=== PATIENT | female | born 1990 | race Caucasian/White ===

== ENCOUNTER 2016-10-21 11:38 | Day surgery (SDC) | payer OTHER ==
[~2016-10-21 11:38] MED LIST: ACETAMINOPHEN 1,000 MG/100 ML 100 ML IV ONE; CELECOXIB 100 MG CAPSULE PO ONE; ceFAZolin 2 GM/50 ML 50 ML IV ONE
[2016-10-21] MEDS ORDERED: LACTATED RINGERS 1,000 ML IV ONE (11:45)
[2016-10-21] MEDS ORDERED: SCOPOLAMINE PATCH TOP ONE (14:16)
[2016-10-21] MEDS ORDERED: ROPIVACAINE 0.2% PF 20 ML AMPULE SUBQ ONE ×2 (14:54→15:05)
[2016-10-21] MEDS ORDERED: MORPHINE PF 5 MG/10 ML AMP SUBQ ONE (14:55)
[2016-10-21] MEDS ORDERED: HYDROmorphone 1 MG/ML SYRINGE IVP ONE (15:05)
[2016-10-21] MEDS ORDERED: LIDOCAINE-MPF 2% 5 ML VIAL IM ONE (15:05)
[2016-10-21] MEDS ORDERED: MIDAZOLAM 2 MG/2 ML VIAL IVP ONE (15:05)
[2016-10-21] MEDS ORDERED: PROPOFOL 200 MG/20 ML VIAL IVP ONE (15:05)
[2016-10-21] MEDS ORDERED: DEXAMETHASONE 4 MG/ML VIAL IVP ONE (15:05)
[2016-10-21] MEDS ORDERED: ONDANSETRON 4 MG/2 ML VIAL IVP ONE (15:05)
[2016-10-21] MEDS ORDERED: EPINEPHrine 1 MG/ML AMP IVP ONE (15:05)
[2016-10-21] MEDS ORDERED: DEXAMETHASONE 10 MG/ML VIAL IVP ONE (15:05)
[2016-10-21] MEDS ORDERED: EPINEPHrine 1 MG/ML AMP IR ONE (15:16)
[2016-10-21] MEDS ORDERED: BUPIVACAINE 0.5% PF 30 ML VIAL SUBQ ONE (15:50)
[2016-10-21] MEDS: fentaNYL 100 MCG/2 ML VIAL ONE ×2 (16:07→16:12)
[2016-10-21] MEDS: HYDROmorphone 1 MG/ML SYRINGE ONE ×5 (16:19→16:59)
[2016-10-21] MEDS ORDERED: HYDROmorphone 1 MG/ML SYRINGE ONE ×2 (16:55→16:56)
[2016-10-21] MEDS ORDERED: oxyCOD/ACETAMIN 5 MG/325 MG TABLET PO ONE ×2 (17:19→17:54)
== END 2016-10-21 11:39 | disposition home or self-care (01) ==
PROC: 0SQD4ZZ Repair Left Knee Joint, Percutaneous Endoscopic Approach (ICD-10-PCS; 2016-10-21)
PROC: 0SBD4ZZ Excision of Left Knee Joint, Percutaneous Endoscopic Approach (ICD-10-PCS; 2016-10-21)
PROC: 0SBD4ZX Excision of Left Knee Joint, Percutaneous Endoscopic Approach, Diagnostic (ICD-10-PCS; principal; 2016-10-21 13:00)
DX: M22.42 Chondromalacia patellae, left knee (principal)
CPT/HCPCS: 29879; 29999; 81025; A9270; J0131; J0690; J1170; J3490; J7120

== ENCOUNTER 2017-01-31 15:32 | Emergency (ER) | payer OTHER ==
[2017-01-31 15:40] VITALS: BP 139/95
[2017-01-31] MEDS ORDERED: IBUPROFEN 800 MG TABLET PO ONE (16:25)
[2017-01-31] MEDS ORDERED: AMOX/CLAV 875 MG/125 MG TABLET PO STA (16:25)
[2017-01-31] MEDS ORDERED: IBUPROFEN 800 MG TABLET PO STA (16:25)
[2017-01-31] MEDS ORDERED: AMOX/CLAV 875 MG/125 MG TABLET PO ONE (16:41)
--- NOTE | 2017-01-31 16:56 | ED Physician Documentation ---
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 No: Weakness, Numbness, Tingling Contributing factors: Work related. No: Immunocompromised, Asplenic, Anticoagulated, Un/under immunized Similar symptoms before: Has not had sx before Recently seen: Not recently seen - Additional information Additional information: Patient washed the wound thoroughly prior to arrival with soapy water and alcohol. Review of Systems Constitutional: denies: Fever, Chills : denies: Now EGA Skin: denies: Rash Musculoskeletal: denies: Neck pain, Back pain Neurologic: denies: Focal weakness, Numbness, Headache PD PAST MEDICAL HISTORY - Past Medical History Past Medical History: Yes Cardiovascular: None Respiratory: None Endocrine/Autoimmune: None GI: None : Other HEENT: Other Psych: Depression, Anxiety Musculoskeletal: Other Derm: None - Past Surgical History Past Surgical History: Yes Ortho: Arthroscopic surgery - Present Medications Home Medications: Ambulatory Orders Medication Instructions Recorded Confirmed Etonogestrel [Nexplanon] 68 mg IP TITR 04/05/15 01/31/17 Venlafaxine HCl [Effexor Xr] 150 mg PO DAILY 04/05/15 01/31/17 Amox/Clav 875/125 [Augmentin] 1 each PO Q12H #14 tablet 01/31/17 Celecoxib [CeleBREX] 100 mg PO DAILY 01/31/17 01/31/17 Ibuprofen [Motrin] 800 mg PO Q8H PRN #30 tablet 01/31/17 - Allergies Allergies/Adverse Reactions: Allergies Allergy/AdvReac Type Severity Reaction Status Date / Time hydrocodone bitartrate * Allergy Hives Verified 01/31/17 15:41 [From Vicodin] venom-honey bee Allergy Anaphylaxis Verified 01/31/17 15:41 [bee venom (honey bee)] - Social History Does the pt smoke?: No Smoking Status: Never smoker Does the pt drink ETOH?: Yes Does the pt have substance abuse?: No - Immunizations Immunizations are current?: Yes Immunizations: TDAP current <10years - POLST Patient has POLST: No PD ED PE NORMAL - Vitals Vital signs reviewed: Yes - General General: Alert and oriented X 3, No acute distress - Derm Derm: Warm and dry - Extremities Extremities: Other (Left thenar eminence with 2 small abrasion/puncture wounds. There is mild swelling. There is tenderness along the first metacarpal. 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 This appears to be a superficial wound to the thenar eminence of the left hand. This was washed and cleansed thoroughly prior to arrival and she does not want us to wash it again at this time. There is no bleeding, so dressing was not applied. Will allow it to be open to the air. No repair needed. No acute findings on x-ray, no fractures or retained foreign objects. Will place on Augmentin for home and follow-up with her doctor. L and I paperwork filled out. Patient counseled regarding signs and symptoms for which I believe and urgent re-evaluation would be necessary. Patient with good understanding of and agreement to plan and is comfortable going home at this time This document was made in part using voice recognition software. While efforts are made to proofread this document, sound alike and grammatical errors may occur. Departure - Departure Disposition: 01 Home, Self Care Clinical Impression: Dog bite Qualifiers: Encounter type: initial encounter Qualified Code(s): W54.0XXA - Bitten by dog, initial encounter Condition: Good Instructions: ED Bite Animal General Follow-Up: Lj Ruiz MD [Primary Care Provider] - Within 3 Days Prescriptions: Amox/Clav 875/125 [Augmentin] 1 each PO Q12H #14 tablet Ibuprofen [Motrin] 800 mg PO Q8H PRN #30 tablet PRN Reason: PAIN &/OR FEVER Comments: Return if worsen. Take all antibiotics until gone. Antibiotics may decrease the effectiveness of control, please use a backup method while on antibiotics. Your blood pressure was elevated today on check in to the emergency department. This does not mean that you have hypertension, it is a common phenomenon to check into the emergency department and have elevated blood pressure. I recommend that you see your primary care physician within the week to have it rechecked when you're feeling better. Discharge Date/Time: 01/31/17 17:04
--- NOTE | 2017-01-31 17:08 | XRAY Preliminary Report ---
Exam: XR Hand 3 View LT IMPRESSION: Normal hand radiography. [facility] SITE ID: [id number]
--- NOTE | 2017-01-31 17:10 | XRAY Report ---
EXAM: LEFT HAND RADIOGRAPHY EXAM DATE: 01/31/2017 04:43 PM. CLINICAL HISTORY: Dog bite. COMPARISON: None. TECHNIQUE: 3 views. FINDINGS: Bones: Normal. No fractures or bone lesions. Joints: Normal. No subluxations. Soft Tissues: Normal. No soft tissue swelling. IMPRESSION: Normal hand radiography. [facility] Referring Provider Line: [phone] SITE ID: [id number]
== END 2017-01-31 17:04 | disposition home or self-care (01) ==
LOC: ED 15:32
DX: S60.572A Other superficial bite of hand of left hand, initial encounter (principal); W54.0XXA Bitten by dog, initial encounter; Y92.89 Other specified places as the place of occurrence of the external cause; Y99.0 Civilian activity done for income or pay; R03.0 Elevated blood-pressure reading, without diagnosis of hypertension
CPT/HCPCS: 73130; 99283; A9270

== ENCOUNTER 2017-03-15 00:13 | Emergency (ER) | payer OTHER ==
--- NOTE | 2017-03-15 01:40 | ED Physician Documentation ---
PD HPI ANIMAL BITE - Stated complaint Stated Complaint: RT FOREARM CAT BITE - Chief complaint Chief Complaint: Wound - History obtained from History obtained from: Patient - History of Present Illness Location of injury(ies): RUE Details of the event: Cat, Pet animal, Well appearing Timing - onset: Enter time (19:30) Timing - details: Abrupt onset Pain level now: 4 Associated symptoms: Swelling. 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 this evening when a cat she was petting bit her right FA Review of Systems Skin: reports: Bite / sting Musculoskeletal: reports: Extremity pain, Extremity swelling PD PAST MEDICAL HISTORY - Past Medical History Past Medical History: Yes Cardiovascular: None Respiratory: None Neuro: Headache/migraine Endocrine/Autoimmune: None GI: None : Other HEENT: Other Psych: Depression, Anxiety Musculoskeletal: Other Derm: None - Past Surgical History Past Surgical History: Yes Ortho: Arthroscopic surgery - Present Medications Home Medications: Ambulatory Orders Medication Instructions Recorded Confirmed Etonogestrel [Nexplanon] 68 mg IP TITR 04/05/15 03/15/17 Venlafaxine HCl [Effexor Xr] 150 mg PO DAILY 04/05/15 03/15/17 Amox/Clav 875/125 [Augmentin] 1 each PO Q12H #14 tablet 03/15/17 Ibuprofen 800 mg PO Q6HR PRN #14 tablet 03/15/17 - Allergies Allergies/Adverse Reactions: Allergies Allergy/AdvReac Type Severity Reaction Status Date / Time hydrocodone bitartrate * Allergy Hives Verified 03/15/17 00:26 [From Vicodin] venom-honey bee Allergy Anaphylaxis Verified 03/15/17 00:26 [bee venom (honey bee)] - Social History Does the pt smoke?: No Smoking Status: Never smoker Does the pt drink ETOH?: Yes Does the pt have substance abuse?: No - Immunizations Immunizations are current?: Yes Immunizations: TDAP current <10years - POLST Patient has POLST: No PD ED PE NORMAL - Vitals Vital signs reviewed: Yes - General General: Alert and oriented X 3, No acute distress, Well developed/nourished - Derm Derm: Normal color, Warm and dry - Neuro Neuro: No motor deficit, No sensory deficit PD ED PE EXPANDED - Extremities FRANCA UE/Hands Visual: 1 - swelling (four puncture wounds c/w cat bite), tenderness Results - Vitals Vitals: Vital Signs - 24 hr 03/15/17 03/15/17 00:24 02:06 Heart Rate 66 63 Respiratory 16 16 Rate Blood Pressure 134/90 H 125/74 O2 Saturation 98 97 Oxygen O2 Source Room air PD MEDICAL DECISION MAKING - ED course Complexity details: considered differential, d/w patient Departure - Departure Disposition: 01 Home, Self Care Clinical Impression: Cat bite of forearm Condition: Good Instructions: ED Bite Cat Follow-Up: Lj Ruiz MD [Primary Care Provider] - (2-3 days for wound check) Prescriptions: Ibuprofen 800 mg PO Q6HR PRN #14 tablet PRN Reason: Pain Amox/Clav 875/125 [Augmentin] 1 each PO Q12H #14 tablet Discharge Date/Time: 03/15/17 02:06
[2017-03-15] MEDS ORDERED: IBUPROFEN 600 MG TABLET PO STA (01:50)
[2017-03-15] MEDS ORDERED: AMOX/CLAV 875 MG/125 MG TABLET PO STA (01:51)
[2017-03-15] MEDS ORDERED: IBUPROFEN 600 MG TABLET PO ONE (02:02)
[2017-03-15] MEDS ORDERED: AMOX/CLAV 875 MG/125 MG TABLET PO ONE (02:02)
[2017-03-15 02:07] VITALS: BP 125/74
== END 2017-03-15 02:06 | disposition home or self-care (01) ==
LOC: ED 00:13
DX: S51.851A Open bite of right forearm, initial encounter (principal); W55.01XA Bitten by cat, initial encounter
CPT/HCPCS: 99283; A9270; 1040M

== ENCOUNTER 2017-07-01 08:52 | Emergency (ER) | payer OTHER ==
[2017-07-01 11:45] LABS: BILIRUBIN,URINE NEGATIVE (NEGATIVE)
[2017-07-01 11:52] LABS: UA CHARGE (STRIP ONLY) YES; UR CULTURE IF IND NOT INDICATED
--- NOTE | 2017-07-01 12:05 | ED Physician Documentation ---
PD HPI NVD - Stated complaint Stated Complaint: N/V/D - Chief complaint Chief Complaint: General - History obtained from History obtained from: Patient - History of Present Illness Timing - onset: Yesterday Timing - duration: Days (1) Timing - details: Abrupt onset, Still present Associated symptoms: Abdominal pain Contributing factors: Sick contact ( sick with same), Bad food, Travel Improved by: Vomiting Worsened by: Eating Similar symptoms before: Has not had sx before Recently seen: Not recently seen - Additonal information Additional information: 27-year-old female has developed acute nausea vomiting and diarrhea beginning yesterday afternoon. She has had persistent nausea and vomiting with epigastric abdominal pain she has had frequent watery diarrhea as well. Her is ill with similar and was sick about a day prior to her. Her only concern is some sandwiches that the couple had in the car when he had to turn around in the past was closed the toes later on and on at night on that was the day the became sick. Review of Systems Constitutional: reports: Fever, Chills, Myalgias, Fatigue Eyes: denies: Decreased vision Ears: denies: Ear pain Nose: denies: Congestion Throat: denies: Sore throat Cardiac: denies: Chest pain / pressure, Palpitations Respiratory: denies: Dyspnea, Cough GI: reports: Abdominal Pain, Nausea, Vomiting, Diarrhea : denies: Dysuria, Frequency Skin: denies: Rash Musculoskeletal: denies: Neck pain, Back pain, Extremity pain PD PAST MEDICAL HISTORY - Past Medical History Cardiovascular: None Respiratory: None Neuro: Headache/migraine Endocrine/Autoimmune: None GI: None : Kidney stones, Other HEENT: Other Psych: Depression, Anxiety Musculoskeletal: Other Derm: None - Past Surgical History Past Surgical History: Yes Ortho: Arthroscopic surgery - Present Medications Home Medications: Ambulatory Orders Medication Instructions Recorded Confirmed Etonogestrel [Nexplanon] 68 mg IP TITR 04/05/15 07/01/17 Venlafaxine HCl [Effexor Xr] 150 mg PO DAILY 04/05/15 07/01/17 Promethazine [Phenergan] 25 - 50 mg PO Q6H PRN #10 tab 07/01/17 - Allergies Allergies/Adverse Reactions: Allergies Allergy/AdvReac Type Severity Reaction Status Date / Time hydrocodone bitartrate * Allergy Hives Verified 07/01/17 09:17 [From Vicodin] venom-honey bee Allergy Anaphylaxis Verified 07/01/17 09:17 [bee venom (honey bee)] - Social History Does the pt smoke?: No Smoking Status: Never smoker Does the pt drink ETOH?: Yes Does the pt have substance abuse?: No - Immunizations Immunizations are current?: Yes Immunizations: TDAP current <10years - POLST Patient has POLST: No PD ED PE NORMAL - Vitals Vital signs reviewed: Yes (tachy and hypertensive ) - General General: No acute distress, Well developed/nourished, Other (The patient is pale with pale lips consistent with significant dehydration ) - HEENT HEENT: Atraumatic, PERRL, EOMI, Other (dry mucous membranes) - Neck Neck: Supple, no meningeal sign, No bony TTP - Cardiac Cardiac: No murmur, Other (tachy to 120) - Respiratory Respiratory: No respiratory distress, Clear bilaterally - Abdomen Abdomen: Soft, Other (epigastric tenderness) - Back Back: No CVA TTP, No spinal TTP - Derm Derm: Normal color, No rash - Extremities Extremities: No deformity, No edema - Neuro Neuro: No motor deficit, No sensory deficit Eye Opening: Spontaneous Motor: Obeys Commands Verbal: Oriented GCS Score: 15 - Psych Psych: Normal mood, Normal affect Results - Vitals Vitals: Vital Signs - 24 hr 07/01/17 07/01/17 07/01/17 09:12 10:38 13:14 Temperature 36 C L 37.9 C H Heart Rate 125 H 124 H 111 H Respiratory 18 20 18 Rate Blood Pressure 142/92 H 137/86 H 102/61 O2 Saturation 96 100 95 Oxygen O2 Source Room air - Labs Labs: Laboratory Tests 07/01/17 07/01/17 07/01/17 11:35 11:35 14:56 WBC 5.8 RBC 4.99 Hgb 13.3 Hct 41.6 MCV 83.4 MCH 26.7 L MCHC 32.0 RDW 14.9 Plt Count 278 MPV 6.4 L Neut # 5.1 Lymph # 0.4 L [place] # 0.3 Eos # 0.0 Baso # 0.0 Absolute Nucleated RBC 0.00 Nucleated RBC % 0.0 Sodium Potassium Chloride Carbon Dioxide Anion Gap BUN Creatinine Estimated GFR (MDRD) Glucose Calcium Total Bilirubin AST ALT Alkaline Phosphatase Total Protein Albumin Globulin Albumin/Globulin Ratio Lipase Urine Color YELLOW Urine Clarity CLEAR Urine pH 6.0 Ur Specific [place] >=1.030 H >=1.030 H Urine Protein NEGATIVE Urine Glucose (UA) NEGATIVE Urine Ketones 15 H Urine Occult Blood NEGATIVE Urine Nitrite NEGATIVE Urine Bilirubin NEGATIVE Urine Urobilinogen 0.2 (NORMAL) Ur Leukocyte Esterase NEGATIVE Ur Microscopic Review NOT INDICATED Urine Culture Comments NOT INDICATED Urine HCG, Qual NEGATIVE 07/01/17 14:56 WBC RBC Hgb Hct MCV MCH MCHC RDW Plt Count MPV Neut # Lymph # [place] # Eos # Baso # Absolute Nucleated RBC Nucleated RBC % Sodium 137 Potassium 3.6 Chloride 108 Carbon Dioxide 22 Anion Gap 7.0 BUN 20 Creatinine 0.7 Estimated GFR (MDRD) 99 Glucose 115 H Calcium 7.9 L Total Bilirubin 0.4 AST 19 ALT 22 Alkaline Phosphatase 65 Total Protein 7.2 Albumin 3.8 Globulin 3.4 Albumin/Globulin Ratio 1.1 Lipase 14 L Urine Color Urine Clarity Urine pH Ur Specific [place] Urine Protein Urine Glucose (UA) Urine Ketones Urine Occult Blood Urine Nitrite Urine Bilirubin Urine Urobilinogen Ur Leukocyte Esterase Ur Microscopic Review Urine Culture Comments Urine HCG, Qual Procedures - IVC sono (time) 1432 Bedside IVC sono: IVC measures (cm) (0.89), IVC collapsed c insp (cm) (complete) , Significant dehydration (afte 2 liters in) PD MEDICAL DECISION MAKING - ED course Complexity details: reviewed results, re-evaluated patient, considered differential, d/w patient, d/w family ED course: 27-year-old female with abdominal pain nausea vomiting and diarrhea has become significantly dehydrated. After 2 L of normal saline the patient continues to be dehydrated on interrogation of the inferior vena cava. She is administered a 3rd L of saline and some Phenergan as well. She has improvement with the phenergan and would like to go home. Departure - Departure Disposition: 01 Home, Self Care Clinical Impression: Gastroenteritis, Dehydration Condition: Stable Instructions: ED Dehydration, ED Gastroenteritis Viral Follow-Up: Lj Ruiz MD [Primary Care Provider] - Prescriptions: Promethazine [Phenergan] 25 - 50 mg PO Q6H PRN #10 tab PRN Reason: Nausea / Vomiting Forms: Activity restrictions
[2017-07-01] MEDS ORDERED: LOPERAMIDE 2 MG CAPSULE PO STA (12:07)
[2017-07-01] MEDS ORDERED: SODIUM CHLORIDE 0.9% 1,000 ML IV ONE ×3 (12:07→14:42)
[2017-07-01] MEDS ORDERED: ONDANSETRON 4 MG/2 ML VIAL IVP STA (12:07)
[2017-07-01 12:43] LABS: HCG UR QUAL NEGATIVE
[2017-07-01] MEDS ORDERED: LOPERAMIDE 2 MG CAPSULE PO ONE (12:44)
[2017-07-01] MEDS ORDERED: ONDANSETRON 4 MG/2 ML VIAL ONE (12:44)
[2017-07-01] MEDS ORDERED: HYDROmorphone 1 MG/ML SYRINGE IVP STA (12:55)
[2017-07-01] MEDS ORDERED: HYDROmorphone 1 MG/ML SYRINGE ONE (13:06)
[2017-07-01 13:15] VITALS: BP 102/61
[2017-07-01] MEDS ORDERED: ACETAMINOPHEN 325 MG TABLET PO STA (13:33)
[2017-07-01] MEDS ORDERED: ACETAMINOPHEN 325 MG TABLET PO ONE (13:39)
[2017-07-01] MEDS ORDERED: PROMETHAZINE INJ 25 MG in SODIUM CHLORIDE 0.9% 50 ML IV STA (14:42)
[2017-07-01 15:04] LABS: BASOPHILS % (AUTO) 0.2 %; EOSINOPHILS % (AUTO) 0.1 %; HCT - HEMATOCRIT 41.6 % (37.0-47.0); HGB - HEMOGLOBIN 13.3 g/dL (12.0-16.0); LYMPHOCYTES # (AUTO) 0.4 10^3/uL (1.5-3.5); LYMPHOCYTES % (AUTO) 7.2 %; MEAN CORPUSCULAR HEMOGLOBIN 26.7 pg (27.0-31.0); MEAN CORPUSCULAR VOLUME 83.4 fL (81.0-99.0); MEAN PLATELET VOLUME 6.4 fL (7.9-10.8); MONOCYTES # (AUTO) 0.3 10^3/uL (0.0-1.0); MONOCYTES % (AUTO) 4.6 %; NEUTROPHILS # (AUTO) 5.1 10^3/uL (1.5-6.6); NEUTROPHILS % (AUTO) 87.9 %; RED BLOOD COUNT 4.99 10^6/uL (4.20-5.40); RED CELL DISTRIBUTION WIDTH 14.9 % (12.0-15.0); UNCORRECTED WHITE BLOOD COUNT 5.8 x10^3/uL; WHITE BLOOD COUNT 5.8 x10^3/uL (4.8-10.8)
[2017-07-01] MEDS ORDERED: PROMETHAZINE 25 MG/1 ML VIAL ONE (15:07)
[2017-07-01 15:15] LABS: ALBUMIN/GLOBULIN RATIO 1.1 (1.0-2.2); BILIRUBIN,TOTAL 0.4 mg/dL (0.2-1.0); CALCIUM 7.9 mg/dL (8.5-10.3); CREATININE 0.7 mg/dL (0.4-1.0); POTASSIUM 3.6 mmol/L (3.5-5.0); TOTAL PROTEIN 7.2 g/dL (6.7-8.2)
== END 2017-07-01 16:44 | disposition home or self-care (01) ==
LOC: ED 08:52
DX: E86.0 Dehydration (principal); K52.9 Noninfective gastroenteritis and colitis, unspecified
CPT/HCPCS: 36415; 80053; 81003; 81025; 83690; 85025; 96361; 96374; 96375; 99283; 99284; A9270; J1170; J7040; 81001; 87086

== ENCOUNTER 2017-07-18 19:09 | Emergency (ER) | payer OTHER ==
[2017-07-18] MEDS ORDERED: CLINDAMYCIN 150 MG CAPSULE PO STA (20:35)
[2017-07-18] MEDS ORDERED: LORATADINE 10 MG TABLET PO STA (20:35)
--- NOTE | 2017-07-18 20:39 | ED Physician Documentation ---
History of Present Illness - Stated complaint Stated Complaint: R EAR PAIN - Chief complaint Chief Complaint: Heent - History obtained from History obtained from: Patient (pt is here with 4-5 days of right ear pain, swollen lymph nodes and left ear fullness. No cough, no fevers, no sinus congestion, no sore throat, no skin changes, no respiratory issues. tried benadryl and tylenol and motrin at home. no neck pain.) Review of Systems Constitutional: denies: Fever, Chills, Fatigue Eyes: denies: Loss of vision, Discharge, Irritation Ears: reports: Ear pain. denies: Loss of hearing, Drainage/discharge, Tinnitus/ ringing, Foreign body Nose: denies: Rhinorrhea / runny nose, Congestion, Epistaxis, Sinus pressure / pain, Foreign Body Throat: denies: Oral lesions / sores, Sore throat, Swollen tonsils, Swallowed foreign body Cardiac: denies: Chest pain / pressure Respiratory: denies: Dyspnea GI: denies: Abdominal Pain, Nausea, Vomiting, Constipation, Diarrhea : denies: Dysuria, Frequency Musculoskeletal: denies: Neck pain, Back pain Neurologic: denies: Headache PD PAST MEDICAL HISTORY - Past Medical History Past Medical History: Yes Cardiovascular: None Respiratory: None Neuro: Headache/migraine Endocrine/Autoimmune: None, Other GI: None : Kidney stones, Other HEENT: Other Psych: Depression, Anxiety Musculoskeletal: Other Derm: None Other Past Medical History: Acne - Past Surgical History Past Surgical History: Yes Ortho: Arthroscopic surgery - Present Medications Home Medications: Ambulatory Orders Medication Instructions Recorded Confirmed Etonogestrel [Nexplanon] 68 mg IP TITR 04/05/15 07/18/17 Venlafaxine HCl [Effexor Xr] 150 mg PO DAILY 04/05/15 07/18/17 Clindamycin HCl [Cleocin HCl] 600 mg PO TID #21 capsule 07/18/17 Doxycycline Hyclate 75 mg PO BID 07/18/17 07/18/17 Fluticasone [Flonase] 1 sprays THU BID #1 bottle 07/18/17 Loratadine [Claritin] 10 mg PO DAILY #30 tablet 07/18/17 - Allergies Allergies/Adverse Reactions: Allergies Allergy/AdvReac Type Severity Reaction Status Date / Time hydrocodone bitartrate * Allergy Hives Verified 07/18/17 19:30 [From Vicodin] venom-honey bee Allergy Anaphylaxis Verified 07/18/17 19:30 [bee venom (honey bee)] - Social History Does the pt smoke?: No Smoking Status: Never smoker Does the pt drink ETOH?: Yes Does the pt have substance abuse?: No - Immunizations Immunizations are current?: Yes Immunizations: TDAP current <10years - POLST Patient has POLST: No PD ED PE NORMAL - Vitals Vital signs reviewed: Yes - General General: Alert and oriented X 3, No acute distress, Well developed/nourished - HEENT HEENT: Atraumatic, PERRL, Moist mucous membranes, Pharynx benign. No: Ears normal (left ear TM bulging but no redness. Right ear bulging w/o redness) - Neck Neck: Supple, no meningeal sign, No JVD, Other (has tenderness to palpation over the right mastoid. ). No: No adenopathy (multiple right sided posterior cervical and occipital and posterior ear LAD.) - Respiratory Respiratory: No respiratory distress, Clear bilaterally Results - Vitals Vitals: Vital Signs - 24 hr 07/18/17 19:18 Temperature 36.4 C L Heart Rate 96 Respiratory 18 Rate Blood Pressure 119/88 H O2 Saturation 98 Oxygen O2 Source Room air PD MEDICAL DECISION MAKING - ED course Complexity details: re-evaluated patient, considered differential, d/w patient ED course: pt with bulging bilateral TM's w/o redness and multiple right sided LAD. she is also tender over the right mastoid. we discussed her symptoms. because of her hx and PE and symptoms will treat as mastoiditis. Discussed with the patient. Will give first dose of ABX here in the ER. she was given return precautions. Departure - Departure Disposition: 01 Home, Self Care Clinical Impression: Mastoiditis, Upper respiratory infection Condition: Good Instructions: ED Otitis Media Acute Adult Prescriptions: Clindamycin HCl [Cleocin HCl] 600 mg PO TID #21 capsule Fluticasone [Flonase] 1 sprays THU BID #1 bottle Loratadine [Claritin] 10 mg PO DAILY #30 tablet Comments: Take all of your medications as instructed. Return to the ER for any new or worsening symptoms.
[2017-07-18 20:59] VITALS: BP 127/73
--- NOTE | 2017-07-20 20:29 | ED Physician Documentation ---
ED Addendum - Addendum Addendum: 07/20/17 20:29 Pharmacy called with question on the prescription. I clarified that it probably should be 300 mg 4 times a day for 10 days for the diagnosis of mastoiditis.
== END 2017-07-18 20:58 | disposition home or self-care (01) ==
LOC: ED 19:09
DX: J06.9 Acute upper respiratory infection, unspecified (principal); H70.90 Unspecified mastoiditis, unspecified ear
CPT/HCPCS: 99283; A9270

== ENCOUNTER 2018-06-25 23:38 | Emergency (ER) | payer OTHER ==
--- NOTE | 2018-06-25 23:54 | ED Physician Documentation ---
PD HPI ABD PAIN - Stated complaint Stated Complaint: ABDOMINAL PAIN - Chief complaint Chief Complaint: Abd Pain - History obtained from History obtained from: Patient - History of Present Illness Timing - onset: How many days ago (2) Timing - duration: Days Timing - details: Gradual onset, Intermittant, Waxing and waning Quality: Sharp Radiation: Lower back Improved by: Other (no ameliorating factors) Worsened by: Eating Associated symptoms: Nausea. No: Fever, Vomiting, Diarrhea, Constipation Recently seen: Not recently seen - Additional information Additional information: c/o sharp abdominal pain x 2 days, initially across lower abdomen but gradually has spread to entire abdomen and radiates to lower back. Pain worse with PO intake. Nausea, but no vomiting Review of Systems Constitutional: denies: Fever, Chills, Sweats Cardiac: reports: Reviewed and negative Respiratory: reports: Reviewed and negative GI: reports: Abdominal Pain, Nausea. denies: Abdominal Swelling, Vomiting, Constipation, Diarrhea : denies: Dysuria, Frequency PD PAST MEDICAL HISTORY - Past Medical History Past Medical History: Yes Cardiovascular: None Respiratory: None Endocrine/Autoimmune: None GI: None : Kidney stones, Other HEENT: Other Psych: Depression, Anxiety Musculoskeletal: Other Derm: None - Past Surgical History Past Surgical History: Yes Ortho: Arthroscopic surgery - Present Medications Home Medications: Ambulatory Orders Medication Instructions Recorded Confirmed Etonogestrel [Nexplanon] 68 mg IP TITR 04/05/15 07/18/17 Venlafaxine HCl [Effexor Xr] 150 mg PO DAILY 04/05/15 07/18/17 Fluticasone [Flonase] 1 sprays THU BID #1 bottle 07/18/17 Loratadine [Claritin] 10 mg PO DAILY #30 tablet 07/18/17 Esomeprazole Magnesium [Nexium] 20 mg PO DAILY #14 capsule. 06/26/18 Lidocaine HCl [Lidocaine HCl 15 ml MM QID PRN #100 ml 06/26/18 Viscous] - Allergies Allergies/Adverse Reactions: Allergies Allergy/AdvReac Type Severity Reaction Status Date / Time hydrocodone bitartrate * Allergy Hives Verified 06/25/18 23:44 [From Vicodin] venom-honey bee Allergy Anaphylaxis Verified 06/25/18 23:44 [bee venom (honey bee)] - Social History Does the pt smoke?: No Smoking Status: Never smoker Does the pt drink ETOH?: Yes Does the pt have substance abuse?: No - Immunizations Immunizations are current?: Yes Immunizations: TDAP current <10years - POLST Patient has POLST: No PD ED PE NORMAL - Vitals Vital signs reviewed: Yes - General General: Alert and oriented X 3, No acute distress, Well developed/nourished - Cardiac Cardiac: RRR, No murmur - Respiratory Respiratory: No respiratory distress, Clear bilaterally - Abdomen Abdomen: Soft, Non tender, Non distended - Back Back: No CVA TTP - Derm Derm: Normal color, Warm and dry, No rash Results - Vitals Vitals: Vital Signs - 24 hr 06/25/18 06/26/18 06/26/18 23:40 00:37 01:16 Temperature 37.1 C Heart Rate 98 84 80 Respiratory 16 15 16 Rate Blood Pressure 133/100 H 124/80 109/67 O2 Saturation 100 97 97 06/26/18 06/26/18 02:00 02:38 Temperature 36.7 C Heart Rate 100 78 Respiratory 18 14 Rate Blood Pressure 121/83 H 114/67 O2 Saturation 99 100 Oxygen O2 Source Room air - Labs Labs: Laboratory Tests 06/25/18 06/25/18 06/25/18 23:55 23:55 23:55 WBC 10.8 RBC 5.02 Hgb 14.1 Hct 43.0 MCV 85.7 MCH 28.1 MCHC 32.8 RDW 14.6 Plt Count 333 MPV 7.0 L Neut # (Auto) 5.3 Lymph # (Auto) 4.6 H Sharp # (Auto) 0.8 Eos # (Auto) 0.2 Baso # (Auto) 0.1 Absolute Nucleated RBC 0.01 Nucleated RBC % 0.1 Sodium 139 Potassium 4.4 Chloride 101 Carbon Dioxide 29 Anion Gap 9.0 BUN 14 Creatinine 0.8 Estimated GFR (MDRD) 84 L Glucose 100 Calcium 9.2 Total Bilirubin 0.3 AST 21 ALT 24 Alkaline Phosphatase 87 Total Protein 8.2 Albumin 4.1 Globulin 4.1 Albumin/Globulin Ratio 1.0 Lipase 25 Urine Color YELLOW Urine Clarity CLEAR Urine pH 6.0 Ur Specific [place] >=1.030 H Urine Protein NEGATIVE Urine Glucose (UA) NEGATIVE Urine Ketones NEGATIVE Urine Occult Blood NEGATIVE Urine Nitrite NEGATIVE Urine Bilirubin NEGATIVE Urine Urobilinogen 0.2 (NORMAL) Ur Leukocyte Esterase NEGATIVE Ur Microscopic Review NOT INDICATED Urine Culture Comments NOT INDICATED Urine HCG, Qual 06/25/18 23:55 WBC RBC Hgb Hct MCV MCH MCHC RDW Plt Count MPV Neut # (Auto) Lymph # (Auto) Sharp # (Auto) Eos # (Auto) Baso # (Auto) Absolute Nucleated RBC Nucleated RBC % Sodium Potassium Chloride Carbon Dioxide Anion Gap BUN Creatinine Estimated GFR (MDRD) Glucose Calcium Total Bilirubin AST ALT Alkaline Phosphatase Total Protein Albumin Globulin Albumin/Globulin Ratio Lipase Urine Color Urine Clarity Urine pH Ur Specific [place] >=1.030 H Urine Protein Urine Glucose (UA) Urine Ketones Urine Occult Blood Urine Nitrite Urine Bilirubin Urine Urobilinogen Ur Leukocyte Esterase Ur Microscopic Review Urine Culture Comments Urine HCG, Qual NEGATIVE - Rads (name of study) RUQ US Radiology: Prelim report reviewed, See rad report PD MEDICAL DECISION MAKING - ED course Complexity details: reviewed results, re-evaluated patient, considered differential, d/w patient Departure - Departure Disposition: 01 Home, Self Care Clinical Impression: Abdominal pain Qualifiers: Abdominal location: upper abdomen, unspecified Qualified Code(s): R10.10 - Upper abdominal pain, unspecified Condition: Good Instructions: ED Abdominal Pain Unkn Cause Follow-Up: DA PEREZ MD [Primary Care Provider] - Within 3 Days Prescriptions: Esomeprazole Magnesium [Nexium] 20 mg PO DAILY #14 capsule. Lidocaine HCl [Lidocaine HCl Viscous] 15 ml MM QID PRN #100 ml PRN Reason: Abdominal Pain Forms: Activity restrictions Discharge Date/Time: 06/26/18 02:53
[2018-06-26] MEDS ORDERED: KETOROLAC 60 MG/2 ML VIAL IVP STA (00:06)
[2018-06-26 00:10] LABS: BILIRUBIN,URINE NEGATIVE (NEGATIVE); GLUCOSE, URINE (UA) NEGATIVE (NEGATIVE); KETONES,URINE (UA) NEGATIVE (NEGATIVE); LEUKOCYTE ESTERASE, URINE NEGATIVE (NEGATIVE); NITRITE,URINE NEGATIVE (NEGATIVE); OCCULT BLOOD,URINE NEGATIVE (NEGATIVE); PROTEIN,URINE NEGATIVE (NEGATIVE); UROBILINOGEN,URINE 0.2 (NORMAL) E.U./dL (NORMAL)
[2018-06-26 00:12] LABS: BASOPHILS # (AUTO) 0.1 10^3/uL (0.0-0.1); BASOPHILS % (AUTO) 0.5 %; CLARITY,URINE CLEAR (CLEAR); EOSINOPHILS # (AUTO) 0.2 10^3/uL (0.0-0.7); EOSINOPHILS % (AUTO) 1.4 %; HGB - HEMOGLOBIN 14.1 g/dL (12.0-16.0); LYMPHOCYTES # (AUTO) 4.6 10^3/uL (1.5-3.5); LYMPHOCYTES % (AUTO) 42.4 %; MEAN CORPUSCULAR HEMOGLOBIN 28.1 pg (27.0-31.0); MEAN CORPUSCULAR HGB CONC 32.8 g/dL (32.0-36.0); MEAN CORPUSCULAR VOLUME 85.7 fL (81.0-99.0); MONOCYTES # (AUTO) 0.8 10^3/uL (0.0-1.0); NEUTROPHILS # (AUTO) 5.3 10^3/uL (1.5-6.6); NEUTROPHILS % (AUTO) 48.7 %; PLT - PLATELET COUNT 333 10^3/uL (130-450); RED BLOOD COUNT 5.02 10^6/uL (4.20-5.40); RED CELL DISTRIBUTION WIDTH 14.6 % (12.0-15.0); WHITE BLOOD COUNT 10.8 x10^3/uL (4.8-10.8)
[2018-06-26 00:14] LABS: HCG UR QUAL NEGATIVE
[2018-06-26 00:23] LABS: ALBUMIN 4.1 g/dL (3.2-5.5); BILIRUBIN,TOTAL 0.3 mg/dL (0.2-1.0); CALCIUM 9.2 mg/dL (8.5-10.3); CREATININE 0.8 mg/dL (0.4-1.0); TOTAL PROTEIN 8.2 g/dL (6.7-8.2)
--- NOTE | 2018-06-26 01:42 | Ultrasound Report ---
Reason: upper abd. pain Procedure Date: 06/26/2018 Accession Number: [id number] / [id number] Procedure: US - Abdomen Limited CPT Code: FULL RESULT: EXAM: ABDOMEN ULTRASOUND LIMITED, RUQ EXAM DATE: 06/26/2018 12:47 AM. CLINICAL HISTORY: Upper abdominal pain COMPARISON: ABDOMEN/PELVIS W/ 05/19/2015 1:47 AM. TECHNIQUE: Real-time scanning was performed with static images obtained. FINDINGS: Liver: Moderate increased echogenicity. No suspicious focal lesion. Liver measures 17.2 cm in length. Portal Vein: Patent with hepatopetal flow. Gallbladder: No stones, wall thickening, or sonographic Zarco's sign. Biliary System: CBD measures 2.1 mm. No intrahepatic or extrahepatic ductal dilatation. Pancreas: Obscured by overlying structures. Right Kidney: Visualized portions are without significant abnormality.. Right kidney measures 10.1 cm in length. Other: None. IMPRESSION: 1. No cholelithiasis, cholecystitis, or biliary dilation. RADIA
[2018-06-26] MEDS ORDERED: MAG HYDROX/AL HYDROX/SIMETH 30 ML UDC PO STA (01:59)
[2018-06-26] MEDS ORDERED: PHENobarb/HYOSCY/ATROPINE/SCOP 5 ML UDC PO STA (02:00)
[2018-06-26] MEDS ORDERED: MORPHINE 2 MG/ML CARPUJECT IVP STA (02:00)
[2018-06-26] MEDS ORDERED: LIDOCAINE VISCOUS 2% 15 ML UDC MM STA (02:00)
[2018-06-26] MEDS ORDERED: ONDANSETRON 4 MG/2 ML VIAL IVP STA (02:00)
[2018-06-26 02:39] VITALS: BP 114/67
== END 2018-06-26 02:53 | disposition home or self-care (01) ==
LOC: ED 23:38
DX: R10.10 Upper abdominal pain, unspecified (principal); Z87.442 Personal history of urinary calculi
CPT/HCPCS: 36415; 76705; 80053; 81003; 81025; 83690; 85025; 96374; 96375; 99283; 99284; A9270; 81001; 87086

== ENCOUNTER 2018-10-18 22:27 | Emergency (ER) | payer OTHER ==
[2018-10-18] MEDS ORDERED: AMOX/CLAV 875 MG/125 MG TABLET PO STA (22:51)
[2018-10-18] MEDS ORDERED: ALBUTEROL NEB 2.5 MG/3 ML INH STA (22:51)
[2018-10-18] MEDS ORDERED: BENZONATATE 100 MG CAPSULE PO STA (22:51)
--- NOTE | 2018-10-18 22:53 | ED Physician Documentation ---
PD HPI URI - Stated complaint Stated Complaint: COUGH/LIGHT HEADED/WHEEZING - Chief complaint Chief Complaint: Resp - History obtained from History obtained from: Patient - History of Present Illness Timing - onset: Other (She is been sick for 4 days with severe cough initially productive now dry, now with increasing sinus pain especially in the right maxillary sinus and chest pain and back pain with coughing. No fevers but positive for chills. No sick contacts.) Review of Systems Constitutional: reports: Chills, Fatigue. 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 06/26/18 Lidocaine HCl [Lidocaine HCl 15 ml MM QID PRN #100 ml 06/26/18 Viscous] Albuterol Sulf [Ventolin Hfa 1 - 2 puffs INH Q4HR PRN #1 inhaler 10/18/18 Inhaler] Amox/Clav 875/125 [Augmentin] 1 each PO Q12H #20 tablet 10/18/18 Benzonatate [Tessalon Perle] 100 - 200 mg PO TID PRN #30 capsule 10/18/18 guaiFENesin/CODEINE [Robitussin AC] 5 - 10 ml PO Q6H PRN #120 ml 10/18/18 - Allergies Allergies/Adverse Reactions: Allergies Allergy/AdvReac Type Severity Reaction Status Date / Time hydrocodone bitartrate * Allergy Hives Verified 10/18/18 22:32 [From Vicodin] venom-honey bee Allergy Anaphylaxis Verified 10/18/18 22:32 [bee venom (honey bee)] - Social History Does the pt smoke?: No Smoking Status: Never smoker Does the pt drink ETOH?: Yes Does the pt have substance abuse?: No - Immunizations Immunizations are current?: Yes Immunizations: TDAP current <10years - POLST Patient has POLST: No PD ED PE NORMAL - Vitals Vital signs reviewed: Yes - General General: Alert and oriented X 3, No acute distress, Other (Frequent coughing) - HEENT HEENT: Other - Neck Neck: Supple, no meningeal sign (Tender over the right maxillary sinus) - Cardiac Cardiac: RRR, No murmur - Respiratory Respiratory: No respiratory distress, Clear bilaterally - Abdomen Abdomen: Non tender - Derm Derm: No rash - Neuro Neuro: Alert and oriented X 3, Normal speech Results - Vitals Vitals: Vital Signs - 24 hr 10/18/18 22:30 Temperature 37.4 C Heart Rate 79 Respiratory 18 Rate Blood Pressure 145/95 H O2 Saturation 100 Oxygen O2 Source Room air PD MEDICAL DECISION MAKING - ED course ED course: 28-year-old woman with sinusitis with cough, treated with Augmentin, cough suppressants. Departure - Departure Disposition: 01 Home, Self Care Clinical Impression: Sinusitis Qualifiers: Sinusitis location: maxillary Chronicity: acute Recurrence: non-recurrent Qualified Code(s): J01.00 - Acute maxillary sinusitis, unspecified Condition: Good Record reviewed to determine appropriate education?: Yes Instructions: ED Sinusitis Abx Tx Prescriptions: Albuterol Sulf [Ventolin Hfa Inhaler] 1 - 2 puffs INH Q4HR PRN #1 inhaler PRN Reason: Shortness Of Air/Wheezing Amox/Clav 875/125 [Augmentin] 1 each PO Q12H #20 tablet Benzonatate [Tessalon Perle] 100 - 200 mg PO TID PRN #30 capsule PRN Reason: Cough guaiFENesin/CODEINE [Robitussin AC] 5 - 10 ml PO Q6H PRN #120 ml PRN Reason: Cough Comments: Call your doctor to arrange a follow-up appointment, make the next available appointment. In the interim, return anytime if worse or if new symptoms develop . Your blood pressure was elevated today on check into the emergency department. This does not mean that you have hypertension, it is a common phenomenon to come to the emergency department and have elevated blood pressure. I recommend that you see your primary care physician within the week to have it rechecked when you are feeling better. Forms: Activity restrictions
[2018-10-18 23:19] VITALS: BP 150/88
== END 2018-10-18 23:19 | disposition home or self-care (01) ==
LOC: ED 22:27
DX: J01.00 Acute maxillary sinusitis, unspecified (principal); R03.0 Elevated blood-pressure reading, without diagnosis of hypertension
CPT/HCPCS: 94640; 94664; 99283; A9270